=== PATIENT | female | born 1970 | race Caucasian/White ===

== ENCOUNTER 2017-01-06 00:36 | Outpatient (CLI) | payer OTHER ==
[2017-01-06 06:38] LABS: Free T4 (Free Thyroxine) 0.88 ng/dL (0.70-1.48); Thyroid Stimulating Hormone 10.9852 uIU/mL (0.35-4.94)
== END 2017-01-06 00:37 ==
LOC: NAV LAB 00:36
PROVIDERS: ATTEND Family Medicine
DX: E89.0 Postprocedural hypothyroidism (principal)
CPT/HCPCS: 36415; 84439; 84443; 84481

== ENCOUNTER 2021-08-03 22:02 | Outpatient (CLI) | payer BC ==
[2021-08-03 22:59] LABS: SARS-CoV-2 NAA Rapid Test Not Detected (NotDetected)
== END 2021-08-03 22:03 | disposition home or self-care (01) ==
LOC: NAV OCC 22:02
PROVIDERS: ATTEND Family Medicine
DX: Z01.812 Encounter for preprocedural laboratory examination (principal); Z20.822 Contact with and (suspected) exposure to COVID-19
CPT/HCPCS: U0002